=== PATIENT | female | born 1970 | race Caucasian/White ===

== ENCOUNTER → 2016-09-22 | Outpatient (CLI) | payer OTHER | LOC: KOH-I 16:21 | DX: J40 Bronchitis, not specified as acute or chronic (principal); Z90.49 Acquired absence of other specified parts of digestive tract; M79.1 Myalgia; F41.9 Anxiety disorder, unspecified; M54.5 Low back pain; G89.29 Other chronic pain; K59.00 Constipation, unspecified; J98.09 Other diseases of bronchus, not elsewhere classified | CPT/HCPCS: 71020 ==

== ENCOUNTER → 2020-09-15 | Outpatient (CLI) | payer OTHER | LOC: RAD 13:26 | DX: K52.9 Noninfective gastroenteritis and colitis, unspecified (principal) | CPT/HCPCS: 74018; 87449 ==